=== PATIENT | female | born 1970 | race African-American/Black ===

== ENCOUNTER 2017-10-01 00:58 | Emergency (ER) | payer OTHER ==
[~2017-10-01] VITALS: Ht 167.6 cm; Wt 113.6 kg
[2017-10-01 04:08] LABS: BASOPHILS % 1.4 % (0.0-2.0); EOSINOPHILS % 1.8 % (0.0-5.0); HEMATOCRIT. 42.9 % (36.0-48.0); HEMOGLOBIN. 14.2 g/dL (12.0-16.0); MEAN CORPUSCULAR HEMOGLOBIN 31.7 pg (28.0-32.0); MEAN CORPUSCULAR VOLUME 95.9 fL (81.0-99.0); MEAN PLATELET VOLUME 6.6 fl (7.4-10.4); MONOCYTES % 9.5 % (2.0-8.0); NEUTROPHILS % 45.3 % (40.0-76.0); PLATELET 301 x1000/uL (130-400); RED BLOOD CELL COUNT 4.47 mill/uL (4.2-5.4); RED CELL DISTRIBUTION WIDTH 14.7 % (11.6-14.6)
[2017-10-01 04:31] LABS: CARBON DIOXIDE 31 mEq/L (21-32); CHLORIDE 103 mEq/L (98-107)
[2017-10-01] MEDS ORDERED: METHYLPREDNISOLONE SOD SUCC 125 MG/2 ML VIAL IM SCH (06:00)
[2017-10-01 06:50] VITALS: BP 142/86
== END 2017-10-01 06:50 | disposition home or self-care (01) ==
LOC: ER 00:58 → EDBD 00:58 → ER 06:50
DX: J02.9 Acute pharyngitis, unspecified (principal); J44.9 Chronic obstructive pulmonary disease, unspecified; R11.10 Vomiting, unspecified; Z87.891 Personal history of nicotine dependence; Z87.01 Personal history of pneumonia (recurrent); Z98.890 Other specified postprocedural states
CPT/HCPCS: 36415; 71045; 80053; 83880; 85025; 93005; 96372; 99285; J2930

== ENCOUNTER 2018-11-20 21:39 | Inpatient (IN) | payer OTHER, MEDICAID ==
[~2018-11-20] VITALS: Ht 167.6 cm; Wt 129.3 kg
[2018-11-20] MEDS ORDERED: MAGNESIUM 2 G PREMIX 50 ML IV STA (23:50)
[2018-11-20] MEDS ORDERED: METHYLPREDNISOLONE SOD SUCC 125 MG/2 ML VIAL IV STA (23:50)
[2018-11-20] MEDS ORDERED: IPRATROPIUM BROMIDE (0.02%) 0.5MG/2.5ML NEB HHN STA (23:50)
[2018-11-20] MEDS ORDERED: ALBUTEROL (0.083%) 2.5MG/3ML NEB HHN STA (23:50)
[2018-11-21 00:50] LABS: HEMATOCRIT 45.2 % (36.0-48.0); HEMOGLOBIN 15.4 g/dL (12.0-16.0); MEAN CORPUSCULAR HEMOGLOBIN 35.4 pg (28.0-32.0); PLATELET 231 x1000/uL (130-400); RED BLOOD CELL COUNT 4.34 mill/uL (4.2-5.4)
[2018-11-21 00:56] LABS: CHLORIDE 101 mEq/L (98-107)
[2018-11-21] MEDS ORDERED: AZITHROMYCIN 500 MG in DEXT 5% WATER 250 ML IV SCH (01:00)
[2018-11-21] MEDS ORDERED: CEFTRIAXONE 1 G PREMIX 50 ML IV ONE (01:00)
[2018-11-21 03:45] VITALS: BP 158/90
[2018-11-21] MEDS ORDERED: PROSOL IH (04:57)
[2018-11-21] MEDS ORDERED: ALBUTEROL (0.083%) 2.5MG/3ML NEB HHN SCH (07:00)
[2018-11-21 08:00] VITALS: BP 141/74
[2018-11-21] MEDS ORDERED: DIPHENHYDRAMINE 50MG/ML VIAL IV PRN (08:15)
[2018-11-21] MEDS ORDERED: DOCUSATE SODIUM 100MG CAPSULE PO PRN (08:15)
[2018-11-21] MEDS ORDERED: ACETAMINOPHEN 650MG/20.3ML UDC GT PRN (08:15)
[2018-11-21] MEDS ORDERED: NA PHOS,M-B/NA PHOS,DI-BA ENEMA 118ML PR PRN (08:15)
[2018-11-21] MEDS ORDERED: ACETAMINOPHEN 325MG TABLET PO PRN (08:15)
[2018-11-21] MEDS ORDERED: CLONIDINE 0.1MG TABLET PO PRN (08:15)
[2018-11-21] MEDS ORDERED: GUAIFENESIN 200MG/10ML SUGAR FREE UDC PO PRN (08:15)
[2018-11-21] MEDS ORDERED: IPRATROPIUM/ALBUTEROL 0.5-3(2.5)MG/3ML NEB INH PRN (08:15)
[2018-11-21] MEDS ORDERED: MAGNESIUM/ALUMINUM HYDROXIDE/SIMETHICONE 30ML UDC PO PRN (08:15)
[2018-11-21] MEDS ORDERED: ACETAMINOPHEN 650MG SUPP PR PRN (08:15)
[2018-11-21] MEDS ORDERED: ONDANSETRON HCL 4MG/2ML INJ IV PRN (08:15)
[2018-11-21] MEDS ORDERED: ENOXAPARIN 40MG/0.4ML SYR SUBCUT SCH (08:15)
[2018-11-21] MEDS ORDERED: HYDROCODONE/ACETAMINOPHEN 10/325MG TABLET PO PRN (08:15)
[2018-11-21] MEDS ORDERED: HYDROCODONE/ACETAMINOPHEN 5/325MG TABLET PO PRN (08:15)
[2018-11-21 08:25] LABS: HEMATOCRIT. 45.5 % (36.0-48.0); HEMOGLOBIN. 15.1 g/dL (12.0-16.0); MEAN CORPUSCULAR HEMOGLOBIN 34.8 pg (28.0-32.0); MEAN CORPUSCULAR VOLUME 104.7 fL (81.0-99.0); MEAN PLATELET VOLUME 7.6 fl (7.4-10.4); PLATELET 231 x1000/uL (130-400); RED BLOOD CELL COUNT 4.35 mill/uL (4.2-5.4); RED CELL DISTRIBUTION WIDTH 14.5 % (11.6-14.6)
[2018-11-21 08:53] LABS: CHLORIDE 102 mEq/L (98-107)
[2018-11-21] MEDS: ENOXAPARIN 40MG/0.4ML SYR SUBCUT SCH ×2 (09:16→21:08)
[2018-11-21] MEDS: LEVOFLOXACIN 500MG PREMIX 100 ML IV SCH (11:18)
[2018-11-21] MEDS: IPRATROPIUM/ALBUTEROL 0.5-3(2.5)MG/3ML NEB INH SCH ×2 (11:48→20:55)
[2018-11-21 12:00] VITALS: BP 144/87
[2018-11-21] MEDS: SODIUM CHLORIDE 0.9% INJ 3ML FLUSH IVF SCH ×2 (14:40→21:09)
[2018-11-21 16:00] VITALS: BP 131/82
[2018-11-21 18:36] LABS: CLARITY URINE CLEAR (CLEAR); COLOR URINE YELLOW (YELLOW); KETONES URINE NEGATIVE (NEGATIVE); LEUKOCYTE ESTERASE URINE NEGATIVE (NEGATIVE); NITRITE URINE NEGATIVE (NEGATIVE); OCCULT BLOOD URINE NEGATIVE (NEGATIVE); PROTEIN URINE NEGATIVE (NEGATIVE); SPECIFIC GRAVITY URINE 1.007 (1.005-1.030)
[2018-11-21 18:41] LABS: UCG SCREEN NEGATIVE
[2018-11-21 18:59] LABS: *AMPHETAMINES SCREEN URINE NEGATIVE (NEGATIVE); *BARBITURATES SCREEN URINE NEGATIVE (NEGATIVE); *BENZODIAZEPINES SCREEN URINE NEGATIVE (NEGATIVE); *COCAINE SCREEN URINE NEGATIVE (NEGATIVE); METHADONE URINE SCREEN NEGATIVE (NEGATIVE)
[2018-11-21 19:00] LABS: OPIATES URINE SCREEN NEGATIVE (NEGATIVE); PHENCYCLIDINE URINE SCREEN NEGATIVE (NEGATIVE)
[2018-11-21 19:02] LABS: CANNABINOID URINE SCREEN PRESUMTIVE POSITIVE (NEGATIVE)
[2018-11-21 20:00] VITALS: BP 140/85
[2018-11-21] MEDS ORDERED: CEFTRIAXONE 1 G PREMIX 50 ML IV SCH (21:00)
[2018-11-21] MEDS: CEFTRIAXONE 1,000 MG in DEXTROSE 5% WATER 50 ML IV SCH (21:16)
[2018-11-21] MEDS ORDERED: IOHEXOL-300 100 ML BOTTLE ONE (22:19)
[2018-11-21 22:29] LABS: PLATELET ESTIMATE NORMAL
[2018-11-22] VITALS: BP 140/87
[2018-11-22] MEDS: IPRATROPIUM/ALBUTEROL 0.5-3(2.5)MG/3ML NEB INH SCH ×4 (01:37→21:02)
[2018-11-22 04:00] VITALS: BP 136/86
[2018-11-22] MEDS: SODIUM CHLORIDE 0.9% INJ 3ML FLUSH IVF SCH ×3 (06:30→22:00)
[2018-11-22 07:23] LABS: BASOPHILS % 0.4 % (0.0-2.0); HEMATOCRIT. 45.8 % (36.0-48.0); HEMOGLOBIN. 14.9 g/dL (12.0-16.0); MEAN CORPUSCULAR HEMOGLOBIN 34.4 pg (28.0-32.0); MEAN CORPUSCULAR VOLUME 105.6 fL (81.0-99.0); MEAN PLATELET VOLUME 7.5 fl (7.4-10.4); MONOCYTES % 8.3 % (2.0-8.0); NEUTROPHILS % 61.3 % (40.0-76.0); PLATELET 250 x1000/uL (130-400); RED BLOOD CELL COUNT 4.34 mill/uL (4.2-5.4); RED CELL DISTRIBUTION WIDTH 14.5 % (11.6-14.6)
[2018-11-22 08:00] VITALS: BP 123/87
[2018-11-22 08:47] LABS: CHLORIDE 102 mEq/L (98-107)
[2018-11-22 09:01] LABS: HDL CHOLESTEROL 59 mg/dL (40-59); LDL CHOLESTEROL 86 mg/dL (5-100)
[2018-11-22] MEDS: ENOXAPARIN 40MG/0.4ML SYR SUBCUT SCH ×2 (09:18→21:07)
[2018-11-22] MEDS: LEVOFLOXACIN 500MG PREMIX 100 ML IV SCH (09:18)
[2018-11-22 14:00] VITALS: BP 132/85
[2018-11-22 16:00] VITALS: BP 118/73
[2018-11-22 20:00] VITALS: BP 107/66
[2018-11-22] MEDS: CEFTRIAXONE 1,000 MG in DEXTROSE 5% WATER 50 ML IV SCH (21:07)
[2018-11-23] VITALS: BP 134/69
[2018-11-23] MEDS: IPRATROPIUM/ALBUTEROL 0.5-3(2.5)MG/3ML NEB INH SCH ×4 (01:07→20:40)
[2018-11-23 04:00] VITALS: BP 145/87
[2018-11-23] MEDS: SODIUM CHLORIDE 0.9% INJ 3ML FLUSH IVF SCH ×3 (06:31→21:08)
[2018-11-23 08:00] VITALS: BP 105/64
[2018-11-23] MEDS: ENOXAPARIN 40MG/0.4ML SYR SUBCUT SCH ×2 (09:23→21:08)
[2018-11-23 09:29] LABS: PHOSPHORUS 4.7 mg/dL (2.5-4.9)
[2018-11-23 09:34] LABS: T4 FREE 0.87 ng/dL (0.76-1.46)
[2018-11-23] MEDS: LEVOFLOXACIN 500MG PREMIX 100 ML IV SCH (10:24)
[2018-11-23 10:27] LABS: FOLIC ACID (FOLATE) SERUM 7.4 ng/mL (>5.38)
[2018-11-23 12:00] VITALS: BP 112/70
[2018-11-23] MEDS ORDERED: LEVO500T2 MT (12:36)
[2018-11-23] MEDS ORDERED: P50 MT (12:37)
[2018-11-23] MEDS ORDERED: METHYLPREDNISOLONE SOD SUCC 125 MG/2 ML VIAL IV NR (14:00)
[2018-11-23 14:14] LABS: BG BASE EXCESS 3.9 mmol/L (-2.0-2.0); BG CARBOXYHEMOGLOBIN 1.1 % (0.5-1.5); BG DEOXYHEMOGLOBIN 11.6 % (0.0-5.0); BG HCO3 ACT 29.8 mmol/L (22.0-26.0); BG METHEMOGLOBIN 0.2 % (0.0-1.5); BG OXYGEN SATURATION 88.2 % (92.0-98.5); BG OXYHEMOGLOBIN 87.1 % (94.0-97.0); BG PCO2 49.1 mmHg (35.0-45.0); BG PH 7.401 (7.350-7.450); BG SAMPLE SITE LEFT RADIAL; BG TOTAL HEMOGLOBIN 15.6 g/dL (12.0-18.0); BG VENT MODE ROOM AIR
[2018-11-23 16:00] VITALS: BP 134/104
[2018-11-23 20:00] VITALS: BP 133/97
[2018-11-23] MEDS: CEFTRIAXONE 1,000 MG in DEXTROSE 5% WATER 50 ML IV SCH (21:08)
[2018-11-24] VITALS (7 sets, daily range): BP systolic 130–142; BP diastolic 80–112
[2018-11-24] MEDS ORDERED: METHYLPREDNISOLONE SOD SUCC 125 MG/2 ML VIAL IV SCH ×2 (02:00→10:00)
[2018-11-24] MEDS: IPRATROPIUM/ALBUTEROL 0.5-3(2.5)MG/3ML NEB INH SCH ×3 (02:59→20:20)
[2018-11-24] MEDS: SODIUM CHLORIDE 0.9% INJ 3ML FLUSH IVF SCH ×3 (05:21→21:16)
[2018-11-24] MEDS: BUDESONIDE 0.5MG/2ML NEB HHN SCH ×2 (07:45→20:19)
[2018-11-24] MEDS: ENOXAPARIN 40MG/0.4ML SYR SUBCUT SCH ×2 (08:58→21:15)
[2018-11-24] MEDS: LEVOFLOXACIN 500MG PREMIX 100 ML IV SCH (10:22)
[2018-11-24] MEDS: BLOOD SUGAR DIAGNOSTIC STRIP TEST SCH ×2 (12:02→17:00)
[2018-11-24] MEDS: METHYLPREDNISOLONE SOD SUCC 40 MG/ML VIAL IV SCH (18:57)
[2018-11-24 20:28] LABS: BASOPHILS % 0.5 % (0.0-2.0); HEMATOCRIT. 44.4 % (36.0-48.0); HEMOGLOBIN. 14.9 g/dL (12.0-16.0); LYMPHOCYTES % 8.7 % (20.0-50.0); MEAN CORPUSCULAR VOLUME 104.6 fL (81.0-99.0); MEAN PLATELET VOLUME 7.5 fl (7.4-10.4); MONOCYTES % 7.1 % (2.0-8.0); NEUTROPHILS % 83.7 % (40.0-76.0); PLATELET 289 x1000/uL (130-400); RED BLOOD CELL COUNT 4.25 mill/uL (4.2-5.4); RED CELL DISTRIBUTION WIDTH 14.1 % (11.6-14.6)
[2018-11-24 20:42] LABS: CHLORIDE 102 mEq/L (98-107)
[2018-11-24] MEDS: CEFTRIAXONE 1,000 MG in DEXTROSE 5% WATER 50 ML IV SCH (21:16)
[2018-11-25] VITALS: BP 135/73
[2018-11-25] MEDS: IPRATROPIUM/ALBUTEROL 0.5-3(2.5)MG/3ML NEB INH SCH ×3 (02:14→13:10)
[2018-11-25] MEDS: METHYLPREDNISOLONE SOD SUCC 40 MG/ML VIAL IV SCH ×2 (02:18→08:56)
[2018-11-25 04:00] VITALS: BP 130/69
[2018-11-25] MEDS: SODIUM CHLORIDE 0.9% INJ 3ML FLUSH IVF SCH ×2 (07:04→14:00)
[2018-11-25 08:00] VITALS: BP 125/73
[2018-11-25] MEDS: BUDESONIDE 0.5MG/2ML NEB HHN SCH (08:15)
[2018-11-25] MEDS: ENOXAPARIN 40MG/0.4ML SYR SUBCUT SCH (08:56)
[2018-11-25] MEDS: BLOOD SUGAR DIAGNOSTIC STRIP TEST SCH (09:00)
[2018-11-25 09:45] LABS: BASOPHILS % 0.6 % (0.0-2.0); HEMATOCRIT. 44.8 % (36.0-48.0); LYMPHOCYTES % 11.6 % (20.0-50.0); MEAN CORPUSCULAR VOLUME 104.7 fL (81.0-99.0); MEAN PLATELET VOLUME 7.4 fl (7.4-10.4); MONOCYTES % 3.6 % (2.0-8.0); NEUTROPHILS % 84.2 % (40.0-76.0); PLATELET 299 x1000/uL (130-400); RED BLOOD CELL COUNT 4.28 mill/uL (4.2-5.4)
[2018-11-25 09:51] LABS: CHLORIDE 103 mEq/L (98-107)
[2018-11-25 12:00] VITALS: BP 126/79
[2018-11-25 16:05] VITALS: BP 126/79
[2018-11-26] MEDS ORDERED: PREDNISONE 20MG TABLET PO SCH (09:00)
== END 2018-11-25 19:50 | disposition home or self-care (01) | DRG 140 ==
LOC: ER 21:39 → 6WST 11-21 01:00 → EDBEDREQ 11-21 01:02 → EDBEDREQTM 11-21 01:02 → ENRESERV 11-21 02:55
PROVIDERS: ADMIT Family Medicine; ATTEND Family Medicine
DX: J44.0 Chronic obstructive pulmonary disease with (acute) lower respiratory infection (principal); J96.20 Acute and chronic respiratory failure, unspecified whether with hypoxia or hypercapnia; J15.6 Pneumonia due to other Gram-negative bacteria; L02.411 Cutaneous abscess of right axilla; E66.01 Morbid (severe) obesity due to excess calories; I27.21 Secondary pulmonary arterial hypertension; E83.51 Hypocalcemia; Z68.42 Body mass index [BMI] 45.0-49.9, adult; J44.1 Chronic obstructive pulmonary disease with (acute) exacerbation; D75.89 Other specified diseases of blood and blood-forming organs; E04.9 Nontoxic goiter, unspecified; F12.90 Cannabis use, unspecified, uncomplicated; F17.200 Nicotine dependence, unspecified, uncomplicated; I10 Essential (primary) hypertension; R73.9 Hyperglycemia, unspecified; J98.11 Atelectasis; N63.0 Unspecified lump in unspecified breast; Z80.42 Family history of malignant neoplasm of prostate; Z98.891 History of uterine scar from previous surgery; Z99.81 Dependence on supplemental oxygen; Z79.51 Long term (current) use of inhaled steroids
CPT/HCPCS: 36415; 36600; 71045; 71260; 76536; 76604; 80048; 80061; 80305; 81025; 82330; 82375; 82607; 82746; 82805; 82962; 83036; 83605; 83735; 84100; 84439; 84443; 84481; 85027; 86376; 87804; 94640; 94644; 96365; 96366; 96368; 99285; J0456; J0696; J1650; J1956; J2920; J2930; J3475; J7050; J7060; J7611; J7620; J7626; Q9967